=== PATIENT | male | born 1975 | race Caucasian/White ===

== ENCOUNTER 2018-09-20 20:15 | Observation (INO) | payer OTHER ==
[~2018-09-20] VITALS: Ht 185.4 cm; Wt 95.8 kg
[~2018-09-20 20:15] MED LIST: Ultram50 MG PO
[2018-09-20 21:05] LABS: Source, Urine Clean Catch
[2018-09-20 21:16] LABS: Bilirubin, Urine Neg (Neg); Blood, Urine Neg (Neg); Glucose Qualitative, Urine Neg (Neg); Ketones, Urine Neg (Neg); Leukocyte Esterase, Urine Neg (Neg); Nitrite, Urine Neg (Neg); Protein, Urine Neg (Neg); Urobilinogen, Urine NORM (Normal)
[2018-09-20 21:18] LABS: Appearance, Urine Clear (Clear); Color, Urine Yellow (P-Yellow)
[2018-09-20 21:19] LABS: BASOPHILS ABSOLUTE AUTO 0.06 K/mm3 (0.00-0.23); BASOPHILS PERCENT AUTO 1 % (0-2); EOSINOPHILS ABSOLUTE AUTO 0.26 K/mm3 (0.00-0.68); EOSINOPHILS PERCENT AUTO 3 % (0-6); Hematocrit 45.9 % (37.0-53.0); Hemoglobin 15.4 g/dL (13.5-17.5); IMMATURE GRAN ABSOLUTE AUTO 0.02 K/mm3 (0.00-0.10); IMMATURE GRAN PERCENT AUTO 0 % (0-1); LYMPHOCYTES ABSOLUTE AUTO 2.94 K/mm3 (0.84-5.20); LYMPHOCYTES PERCENT AUTO 28 % (21-46); MONOCYTES PERCENT AUTO 6 % (4-13); Mean Corpuscular HGB Conc 33.6 g/dL (31.5-36.5); Mean Corpuscular Volume 95 fL (80-100); Mean Platelet Volume 9.7 fL (9.1-12.4); NEUTROPHILS PERCENT AUTO 63 % (41-73); Platelet Count 252 K/mm3 (150-400); RDW Coefficient Variation 12.1 % (11.7-14.2); RDW Standard Deviation 42.5 fL (35.1-46.3); Red Blood Cell Count 4.82 M/mm3 (4.30-5.90); White Blood Cell Count 10.38 K/mm3 (4.00-11.30)
[2018-09-20 21:37] LABS: Alanine Aminotransfer (ALT/SGP 48 U/L (12-78); Albumin/Globulin Ratio 1.1 (0.8-1.8); Alk Phos 79 U/L (50-136); Anion Gap 5 mmol/L (6-16); Aspartate Aminotrans (AST/SGOT 24 U/L (12-37); Bilirubin, Total 0.4 mg/dL (0.1-1.0); Blood Urea Nitrogen 22 mg/dL (8-24); Bun/Creatinine Ratio 23.9 (12.0-20.0); CO2, Blood 28 mmol/L (21-32); Calcium, Blood 8.8 mg/dL (8.5-10.1); Chloride, Blood 105 mmol/L (98-108); Creatinine, Blood 0.92 mg/dL (0.60-1.20); Globulin, Blood 3.8 g/dL (2.2-4.0); Glomerular Filtration Rate >60 (60-); Glucose, Blood 90 mg/dL (70-99); Potassium, Blood 3.5 mmol/L (3.5-5.5); Sodium, Blood 138 mmol/L (136-145); Total Protein, Blood 7.8 g/dL (6.4-8.2)
[2018-09-21 05:55] LABS: BASOPHILS ABSOLUTE AUTO 0.05 K/mm3 (0.00-0.23); BASOPHILS PERCENT AUTO 1 % (0-2); EOSINOPHILS ABSOLUTE AUTO 0.32 K/mm3 (0.00-0.68); EOSINOPHILS PERCENT AUTO 3 % (0-6); Hematocrit 43.5 % (37.0-53.0); Hemoglobin 14.5 g/dL (13.5-17.5); IMMATURE GRAN ABSOLUTE AUTO 0.02 K/mm3 (0.00-0.10); IMMATURE GRAN PERCENT AUTO 0 % (0-1); LYMPHOCYTES ABSOLUTE AUTO 3.29 K/mm3 (0.84-5.20); LYMPHOCYTES PERCENT AUTO 35 % (21-46); MONOCYTES ABSOLUTE AUTO 0.66 K/mm3 (0.16-1.47); MONOCYTES PERCENT AUTO 7 % (4-13); Mean Corpuscular HGB 31.4 pg (26.0-34.0); Mean Corpuscular HGB Conc 33.3 g/dL (31.5-36.5); Mean Corpuscular Volume 94 fL (80-100); Mean Platelet Volume 9.7 fL (9.1-12.4); NEUTROPHILS ABSOLUTE AUTO 4.95 K/mm3 (1.96-9.15); NEUTROPHILS PERCENT AUTO 53 % (41-73); Platelet Count 214 K/mm3 (150-400); RDW Coefficient Variation 12.1 % (11.7-14.2); RDW Standard Deviation 42.2 fL (35.1-46.3); Red Blood Cell Count 4.62 M/mm3 (4.30-5.90); White Blood Cell Count 9.29 K/mm3 (4.00-11.30)
--- NOTE | 2018-09-21 14:20 | NUR ---
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
--- NOTE | 2018-09-21 19:16 | NUR ---
SUMMARY CONT. TO HAVE PAIN ON R ABD, MEDICATED WITH IV FENTANYL, PT AMBULATED OUTSIDE TO SMOKE BUT WAS TOO PAINFUL, OFFERED NICOTINE PATCH, DR. DELATORRE SAW PT THIS EVENING, SEE ORDERS, DENIES ANY NAUSEA OR LOOSE STOOLS, NO ACUTE CHANGES THIS SHIFT.
--- NOTE | 2018-09-22 05:12 | NUR ---
SHIFT SUMMARY PT ADMITTED FOR ENTERITIS. DENIES N/V, TOELRATING CLEAR LIQUIDS. PT IS A&O, INDEP IN THE ROOM. MEDICATED FOR PAIN PER EMAR. STILL NEED TO OBTAIN A STOOL SAMPLE. PT RAN FLUIDS OVERNIGHT PER ORDERS, SL THIS AM, TAKING PO FLUIDS. WILL CTM UNTIL PASS TO NEXT SHIFT.
[2018-09-22 10:14] LABS: Campylobacter Sp Not Detected (NOT DETECT); Cryptosporidium Not Detected (NOT DETECT); Cyclospora Cayetanensis Not Detected (NOT DETECT); E. Coli O157 Not Detected (NOT DETECT); Entamoeba Histolytica Not Detected (NOT DETECT); Enteroaggregative E. coli-EAEC Not Detected (NOT DETECT); Enteropathogenic E. coli-EPEC Not Detected (NOT DETECT); Enterotoxigenic E. coli-ETEC Not Detected (NOT DETECT); Giardia Lamblia Not Detected (NOT DETECT); Plesiomonas Shigelloides Not Detected (NOT DETECT); Salmonella Sp Not Detected (NOT DETECT); Shiga Toxin-prod E. coli-STEC Not Detected (NOT DETECT); Shigella/Enteroin E. coli-EIEC Not Detected (NOT DETECT); Vibrio Cholerae Not Detected (NOT DETECT); Vibrio Sp Not Detected (NOT DETECT); Yersinia Enterocolitica Not Detected (NOT DETECT)
[2018-09-22 10:15] LABS: Adenovirus F 40/41 Not Detected (NOT DETECT); Astrovirus Not Detected (NOT DETECT); Norovirus GI/GII Not Detected (NOT DETECT); Rotavirus A Not Detected (NOT DETECT); Sapovirus Not Detected (NOT DETECT)
--- NOTE | 2018-09-22 12:32 | NUR ---
PT AMBULATING IN [place] WITH FAMILY.
--- NOTE | 2018-09-22 13:19 | NUR ---
DRESSING TO IV SITE CHANGED. ABX STARTED.
[2018-09-22 13:53] LABS: Stool Occult Blood Guaiac 1 Neg (Neg)
--- NOTE | 2018-09-22 16:45 | NUR ---
CONSULTS DR. BARTON IN TO SEE PT EARLIER TODAY, ADVANCED DIET TO REGULAR, NO OTHER NEW ORDERS RECEIVED, DR. CHRISTIANSEN ALSO SAW PT TODAY AND CHANGED ABX TO PO, STATES WILL SEE HOW PT TOLERATES REGULAR DIET AND PO ABX THEN POSSIBLE DC IN AM, PT HAS BEEN AMBULATING OUTSIDE TO SMOKE, PT HAS REMOVED HIS NICOTINE PATCH, REPORTS TOLERATING REGULAR FOOD SO FAR, DENIES ANY CHANGES IN PAIN OR NAUSEA, NORCO ORDERED BY DR. DELATORRE, CONT. TO MONITOR FOR ANY CHANGES.
--- NOTE | 2018-09-22 19:03 | NUR ---
SUMMARY REPORTS TOLERATING REGULAR FOOD WELL, PAIN BETTER W/ PO NORCO, CONT. TO AMBULATE OUTSIDE TO SMOKE, NO ACUTE CHANGES THIS SHIFT.
--- NOTE | 2018-09-23 05:13 | NUR ---
NO SIG CHANGES DURING NIGHT. PAIN REMAINS TOLERABLE WITH ORAL NARCOTICS. HAS BEEN TOLERATING PO, NO N/V. PLAN FOR DISCHARGE TODAY. CALL LIGHT IN REACH.
[2018-09-23] MEDS ORDERED: HYDR1TAB94 PO (10:57)
[2018-09-23] MEDS ORDERED: CIPR500 PO (10:59)
[2018-09-23] MEDS ORDERED: Nicoderm Cq1 EAC1 TOP (11:00)
[2018-09-23] MEDS ORDERED: METR500 PO (11:00)
[2018-09-23] MEDS ORDERED: GAVILAX17 GM PO (11:02)
--- NOTE | 2018-09-23 11:24 | NUR ---
DISCHARGE DISCHARGED HOME AMBULATORY
== END 2018-09-23 11:25 | disposition home or self-care (01) ==
LOC: ER 20:15 → ERHOLD 20:16 → SURS 20:16
PROVIDERS: Internal Medicine; Physician Assistant; ADMIT Hospitalist
DX: K52.9 Noninfective gastroenteritis and colitis, unspecified (principal); F17.210 Nicotine dependence, cigarettes, uncomplicated; Z88.0 Allergy status to penicillin
CPT/HCPCS: 29130; 36415; 72193; 80053; 81003; 82272; 83690; 83993; 85025; 86140; 87507; 96361-59; 96365-59; 96367; 96375; 96375-59; 96376; 96376-59; 99285-25; A9270-GY; G0378; J0456; J0692; J1170; J2405; J3010; J7030; J7050; J7120; Q9967

== ENCOUNTER 2018-11-08 13:56 | Day surgery (SDC) | payer OTHER ==
[~2018-11-08] VITALS: Ht 182.9 cm; Wt 92.5 kg
[~2018-11-08 13:56] MED LIST changes: +CIPR500 PO; +GAVILAX17 GM PO; +HYDR1TAB94 PO; +METR500 PO; +Nicoderm Cq1 EAC1 TOP
--- NOTE | 2018-11-08 14:17 | NUR ---
History, Chart, Medications and Allergies reviewed before start of procedure.Patient confirms NPO status and agrees with scheduled surgery. States he took all of colon prep prep with clear results. Patient States Post-Procedure ride home has been arranged with his girlfriend, Elida.
[2018-11-08] MEDS ORDERED: Norco 5-325 Ta1 EACH PO (14:32)
[2018-11-08] MEDS ORDERED: LAMO25 PO (14:35)
--- NOTE | 2018-11-08 14:44 | NUR ---
Lungs clear T/O to Auscultation.
--- NOTE | 2018-11-08 14:53 | NUR ---
11/08/18 1453 Mary Beth Caraballo MAC CASE IN ENDO [address] ESPARZA. SEE ANETHETIC RECORD FOR CARE.
--- NOTE | 2018-11-08 15:44 | NUR ---
Discharge instructions reviewed with patient. Patient verbalizes understanding. Copy given to patient to take home. Discharged via wheelchair to private car for ride home. Patient up to Ambulate independently. Gait steady.
== END 2018-11-08 22:51 | disposition home or self-care (01) ==
LOC: ORSCMMR 13:56
PROVIDERS: Internal Medicine Gastroenterology
PROC: 0DBE8ZX Excision of Large Intestine, Via Natural or Artificial Opening Endoscopic, Diagnostic (ICD-10-PCS; principal; 2018-11-08 15:45)
PROC: 0DBB8ZX Excision of Ileum, Via Natural or Artificial Opening Endoscopic, Diagnostic (ICD-10-PCS; principal; 2018-11-08 15:45)
DX: R10.9 Unspecified abdominal pain (principal); R19.4 Change in bowel habit; K52.9 Noninfective gastroenteritis and colitis, unspecified; G47.33 Obstructive sleep apnea (adult) (pediatric); Z79.899 Other long term (current) drug therapy
CPT/HCPCS: 88305; J2704; J7120

== ENCOUNTER 2018-12-24 19:55 | Emergency (ER) | payer OTHER ==
[~2018-12-24] VITALS: Ht 180.3 cm; Wt 95.2 kg
[~2018-12-24 19:55] MED LIST changes: +LAMO25 PO; +Norco 5-325 Ta1 EACH PO
== END 2018-12-24 20:49 | disposition home or self-care (01) ==
LOC: ER 19:55
DX: T49.8X1A Poisoning by other topical agents, accidental (unintentional), initial encounter (principal); L25.0 Unspecified contact dermatitis due to cosmetics; L50.9 Urticaria, unspecified; Z88.0 Allergy status to penicillin; Z79.899 Other long term (current) drug therapy; F17.200 Nicotine dependence, unspecified, uncomplicated
CPT/HCPCS: 96372; 99283-25; J3301; Q0163

== ENCOUNTER 2020-06-29 23:09 | Emergency (ER) | payer OTHER ==
[~2020-06-29] VITALS: Ht 182.9 cm; Wt 108.9 kg
== END 2020-06-29 23:38 | disposition home or self-care (01) ==
LOC: ER 23:09
DX: S90.31XA Contusion of right foot, initial encounter (principal); F17.200 Nicotine dependence, unspecified, uncomplicated; Z88.0 Allergy status to penicillin; Z79.899 Other long term (current) drug therapy; W22.8XXA Striking against or struck by other objects, initial encounter
CPT/HCPCS: 73630; 99283-25

== ENCOUNTER 2020-07-08 17:54 | Emergency (ER) | payer OTHER ==
[~2020-07-08] VITALS: Ht 180.3 cm; Wt 108.9 kg
== END 2020-07-08 19:53 | disposition home or self-care (01) ==
LOC: ER 17:54
DX: M79.604 Pain in right leg (principal); E78.5 Hyperlipidemia, unspecified; F17.200 Nicotine dependence, unspecified, uncomplicated
CPT/HCPCS: 73590; 99283-25